=== PATIENT | female | born 1955 | race Caucasian/White ===

== ENCOUNTER 2023-04-04 15:37 | Emergency (ER) | payer MEDICARE, OTHER, SELFPAY ==
[2023-04-04] VITALS (14 sets, daily range): BP systolic 113–146; BP diastolic 58–72; PULSE 90–108; RESP 16–38; TEMP 36.8; O2SAT 94–98; BMI 26.6
--- NOTE | 2023-04-04 15:51 | DI.RAD.S_ITS ---
PROCEDURE: XR CHEST 1V INDICATIONS: chest pain TECHNIQUE: One view of the chest was acquired. COMPARISON: None. FINDINGS: Lungs and pleura: Lungs are clear. No pleural effusions or pneumothorax. Mediastinum: Mediastinal contours appear normal. Heart size is normal. Bones and chest wall: No suspicious bony lesions. Overlying soft tissues appear unremarkable. IMPRESSION: No acute cardiopulmonary abnormality. Dictated by: Selvin Hawthorne M.D. on 04/04/2023 at 17:30 Approved by: Selvin Hawthorne M.D. on 04/04/2023 at 17:31
[2023-04-04 16:39] LABS: Add Manual Diff / Slide Review NO; Basophils Absolute Auto 0 /uL (0-100); Basophils Percent Auto 0.3 % (0-2); Eosinophils Absolute Auto 100 /uL (0-450); Eosinophils Percent Auto 0.9 % (2-4); Hematocrit 39.5 % (36-46); Hemoglobin 13.4 g/dL (12.0-16.0); Lymphocytes Absolute Auto 1300 /uL (1100-4500); Lymphocytes Percent Auto 19.1 % (25-40); Mean Corpuscular Hemoglobin 30.7 PG (26-34); Mean Corpuscular Volume 90.5 fL (80-100); Monocytes Absolute Auto 1100 /uL (0-900); Monocytes Percent Auto 15.8 % (3-14); Neutrophils Absolute Auto 4300 /uL (1500-7000); Neutrophils Percent Auto 63.9 % (50-75); Platelet Count 188 X10^3/uL (150-400); Red Blood Cell Count 4.36 X10^6/uL (4.0-5.2); Red Cell Distribution Width 13.8 % (11.6-14.8); White Blood Cell Count 6.7 X10^3/uL (4.5-11.0)
[2023-04-04 16:40] LABS: INR 1.1 (0.9-1.3); Prothrombin Time 12.8 SECONDS (10.1-12.7)
[2023-04-04 16:42] LABS: PTT Partial Thromboplastin Tim 28 SECONDS (26-36)
[2023-04-04 16:45] LABS: Alanine Aminotransferase 29 IU/L (<35); Albumin 3.9 g/dL (3.5-5.0); Albumin Globulin Ratio 1.5 (1.0-2.8); Alkaline Phosphatase 88 U/L (38-126); Aspartate Aminotransferase 31 IU/L (14-36); Blood Urea Nitrogen 27 mg/dL (7-17); Calcium 9.4 mg/dL (8.4-10.2); Carbon Dioxide 23 mmol/L (22-32); Chloride 101 mmol/L (98-107); Creatine Kinase < 20 U/L (30-135); Estimated Glomerular Filt Rate > 60 mL/min (>60); Globulin 2.6 g/dL (1.7-4.1); Glucose 99 mg/dL (80-110); HEMOLYSIS < 15 (0-50); Lipase 207 U/L (23-300); Magnesium 1.8 mg/dL (1.6-2.3); Potassium 4.4 mmol/L (3.4-5.1); Sodium 135 mmol/L (137-145); Total Protein 6.5 g/dL (6.3-8.2)
[2023-04-04 16:56] LABS: Troponin I < 0.012 ng/mL (0.01-0.034)
[2023-04-04 18:14] LABS: TSH w/ Reflex to FT4 < 0.02 uIU/mL (0.47-4.68)
[2023-04-04 18:42] LABS: Free T4, Direct Thyroxine > 6.99 ng/dL (0.78-2.19)
--- NOTE | 2023-04-04 18:56 | PC.NURSE ---
This RNs first interaction with patient. She has been waiting in the lobby, brought to the tx room at 1850.
--- NOTE | 2023-04-04 20:42 | ED_ITS ---
HPI - Chest Pain General Chief Complaint: Chest Pain Stated Complaint: elevated heart rate Time Seen by Provider: 04/04/23 20:42 Source: patient Mode of arrival: Ambulatory Limitations: no limitations History of Present Illness HPI narrative: Patient is a 67-year-old female history of hypothyroid presenting today with heart palpitations and shortness of breath. She reports that she is visiting from [place] helping her cousin out for a month while she recovers from surgery. She reports that going up stairs she feels like her heart is racing and she is very short of breath she denies any chest pain. She has not passed out. No nausea vomiting or abdominal pain. She also reports stress with her elderly parents as well with their health issues. Related Data Home Medications Medication Instructions Recorded Confirmed thyroid (pork) 120 mg tablet ([employer] 120 mg PO DAILY 04/04/23 04/04/23 Thyroid) Allergies Allergy/AdvReac Type Severity Reaction Status Date / Time codeine Allergy Hypertensio Verified 04/04/23 15:49 n Review of Systems Review of Systems ROS Unobtainable: All systems reviewed & are unremarkable except as noted in HPI and below Patient History Social History Smoking Status: Never smoker Smoking Status: Never smoker alcohol intake frequency: a few times a month Substance Use Type: does not use Exam Initial Vital Signs Initial Vital Signs: Vital Signs Temperature 98.3 F 04/04/23 15:42 Pulse Rate 90 04/04/23 15:42 Respiratory Rate 20 04/04/23 15:42 Blood Pressure 146/66 H 04/04/23 15:42 Pulse Oximetry 97 04/04/23 15:42 Oxygen Delivery Method Room Air 04/04/23 15:42 GENERAL: Alert pleasant well-appearing 67-year-old female and in no acute distress. HEENT: Head atraumatic,EOMI, pupils reactive, face symmetric, moist] mucous membranes CARDIOVASCULAR: Mildly tachycardic no murmur regular RESPIRATORY: Breath sounds equal bilaterally, no wheezes rales or rhonchi. ABDOMEN: Soft, nontender. Normoactive bowel sounds all 4 quadrants. No guarding or rebound. EXTREMITIES: Normal range of motion, no clubbing or edema. Neurovascularly intact NEUROLOGICAL: Alert and oriented x4. SKIN: Warm, dry, no laceration, no petechiae, no rashes or lesions. Scores PERC Score Age greater than or equal to 50 years: Yes Heart rate greater than or equal to 100 bpm: Yes Room Air O2 Sat less than 95%: No Unilateral leg swelling: No Recent trauma or surgery: No Hemoptysis: No Prior PE or DVT: No Hormone Use: No Total PERC Score: 2 Course Orders Ordered: ED Orders 04/04/23 21:00 D Dimer Stat Discontinued Medications Aspirin (Aspirin 81 Mg Chew Tab) 324 mg PO NOW ONE Stop: 04/04/23 15:52 Last Admin: 04/04/23 18:59 Dose: Not Given Documented By: TRISH Vital Signs Vital signs: Vital Signs - 8 hr 04/04/23 20:00 04/04/23 20:00 04/04/23 20:15 Pulse Rate 98 H 103 H Respiratory Rate 16 20 Blood Pressure 140/72 Pulse Oximetry 97 97 Oxygen Delivery Method 04/04/23 20:15 04/04/23 20:30 04/04/23 20:30 Pulse Rate 103 H Respiratory Rate 20 Blood Pressure 130/68 146/70 H Pulse Oximetry 97 Oxygen Delivery Method 04/04/23 20:45 04/04/23 20:45 04/04/23 21:00 Pulse Rate 108 H Respiratory Rate 22 Blood Pressure 131/61 135/63 Pulse Oximetry 95 Oxygen Delivery Method 04/04/23 21:00 04/04/23 21:15 04/04/23 21:15 Pulse Rate 106 H 105 H Respiratory Rate 18 20 Blood Pressure 144/67 H Pulse Oximetry 94 95 Oxygen Delivery Method Room Air 04/04/23 21:30 04/04/23 21:30 Pulse Rate 99 H Respiratory Rate 22 Blood Pressure 131/59 L Pulse Oximetry 94 Oxygen Delivery Method Room Air MDM - Chest Pain Lab Data 04/04/23 16:23 04/04/23 16:23 Labs: Lab Results 04/04/23 04/04/23 04/04/23 Range/Units 16:23 16:23 16:23 WBC 6.7 (4.5-11.0) X10^3/uL RBC 4.36 (4.0-5.2) X10^6/uL Hgb 13.4 (12.0-16.0) g/dL Hct 39.5 (36-46) % MCV 90.5 (80-100) fL MCH 30.7 (26-34) PG MCHC 34.0 (30-36) % RDW 13.8 (11.6-14.8) % Plt Count 188 (150-400) X10^3/uL Neut % (Auto) 63.9 (50-75) % Lymph % (Auto) 19.1 L (25-40) % Bullitt % (Auto) 15.8 H (3-14) % Eos % (Auto) 0.9 L (2-4) % Baso % (Auto) 0.3 (0-2) % Neut # (Auto) 4300 (0506-1224) /uL Lymph # (Auto) 1300 (9877-3316) /uL Bullitt # (Auto) 1100 H (0-900) /uL Eos # (Auto) 100 (0-450) /uL Baso # (Auto) 0 (0-100) /uL PT 12.8 H (10.1-12.7) SECONDS INR 1.1 (0.9-1.3) APTT 28 (26-36) SECONDS D-Dimer (<500) ng/ml Sodium 135 L (137-145) mmol/L Potassium 4.4 (3.4-5.1) mmol/L Chloride 101 (98-107) mmol/L Carbon Dioxide 23 (22-32) mmol/L BUN 27 H (7-17) mg/dL Creatinine 0.73 (0.52-1.04) mg/dL Estimated GFR > 60 (>60) mL/min BUN/Creatinine Ratio 37.0 H (6-22) Glucose 99 (80-110) mg/dL Calcium 9.4 (8.4-10.2) mg/dL Magnesium 1.8 (1.6-2.3) mg/dL Total Bilirubin 1.0 (0.2-1.3) mg/dL AST 31 (14-36) IU/L ALT 29 (<35) IU/L Alkaline Phosphatase 88 (38-126) U/L Total Creatine Kinase < 20 L (30-135) U/L Troponin I < 0.012 (0.01-0.034) ng/mL Total Protein 6.5 (6.3-8.2) g/dL Albumin 3.9 (3.5-5.0) g/dL Globulin 2.6 (1.7-4.1) g/dL Albumin/Globulin Ratio 1.5 (1.0-2.8) Lipase 207 (23-300) U/L TSH (0.47-4.68) uIU/mL Free T4 (0.78-2.19) ng/dL 04/04/23 04/04/23 Range/Units 16:23 21:00 WBC (4.5-11.0) X10^3/uL RBC (4.0-5.2) X10^6/uL Hgb (12.0-16.0) g/dL Hct (36-46) % MCV (80-100) fL MCH (26-34) PG MCHC (30-36) % RDW (11.6-14.8) % Plt Count (150-400) X10^3/uL Neut % (Auto) (50-75) % Lymph % (Auto) (25-40) % [place] % (Auto) (3-14) % Eos % (Auto) (2-4) % Baso % (Auto) (0-2) % Neut # (Auto) (0207-1673) /uL Lymph # (Auto) (5211-6552) /uL Bullitt # (Auto) (0-900) /uL Eos # (Auto) (0-450) /uL Baso # (Auto) (0-100) /uL PT (10.1-12.7) SECONDS INR (0.9-1.3) APTT (26-36) SECONDS D-Dimer 649 H (<500) ng/ml Sodium (137-145) mmol/L Potassium (3.4-5.1) mmol/L Chloride (98-107) mmol/L Carbon Dioxide (22-32) mmol/L BUN (7-17) mg/dL Creatinine (0.52-1.04) mg/dL Estimated GFR (>60) mL/min BUN/Creatinine Ratio (6-22) Glucose (80-110) mg/dL Calcium (8.4-10.2) mg/dL Magnesium (1.6-2.3) mg/dL Total Bilirubin (0.2-1.3) mg/dL AST (14-36) IU/L ALT (<35) IU/L Alkaline Phosphatase (38-126) U/L Total Creatine Kinase (30-135) U/L Troponin I (0.01-0.034) ng/mL Total Protein (6.3-8.2) g/dL Albumin (3.5-5.0) g/dL Globulin (1.7-4.1) g/dL Albumin/Globulin Ratio (1.0-2.8) Lipase (23-300) U/L TSH < 0.02 L (0.47-4.68) uIU/mL Free T4 > 6.99 H (0.78-2.19) ng/dL Imaging Data Chest x-ray: Radiologist's Impression: PROCEDURE:? XR CHEST 1V ? INDICATIONS:? chest pain ? TECHNIQUE:? One view of the chest was acquired.? ? COMPARISON:? None. ? FINDINGS:? ? Lungs and pleura:? Lungs are clear.? No pleural effusions or pneumothorax.? ? Mediastinum:? Mediastinal contours appear normal.? Heart size is normal.? ? Bones and chest wall:? No suspicious bony lesions.? Overlying soft tissues appear unremarkable.? ? IMPRESSION:? No acute cardiopulmonary abnormality. ? ? Dictated by: Selvin Hawthorne M.D. on 04/04/2023 at 17:30? ECG Data Interpretation: Normal sinus rhythm 98 NC interval 160 QRS [address] changes no T-wave inversions no priors to compare MDM Narrative Medical decision making narrative: Patient 67-year-old female presenting today palpitations shortness of breath. She is found to be hyperthyroid. She reports that she is taking a natural thyroid he is supposed to be taking the thyroid and P however the pharmacy gave her the armor. I suspect that this is causing her palpitations. She is going back to [place] next month. Other blood work is reviewed and reassuring. Pulmonary embolism was considered with her recent travel and tachycardia D-dimer is ordered it is 649 which is age corrected. She is a positive PERC score with a negative years. I think likely cause of her tachycardia is her thyroid more likely than a pulmonary embolism. No evidence of coronary artery disease. Mild thyroid storm with low-grade tachycardia. We discussed stopping her thyroid medication until she returns back to [place] in a few weeks YEARS Algorithm for Pulmonary Embolism (PE) from [employer] on 04/05/2023 All calculations should be rechecked by clinician prior to use RESULT SUMMARY: PE excluded YEARS algorithm rules out PE (0.43% with symptomatic VTE during 3-month follow- up) INPUTS: patient ?> 0 = No Clinical signs of DVT ?> 0 = No Hemoptysis ?> 0 = No PE most likely diagnosis ?> 0 = No D-dimer >=,000 ng/mL ?> 0 = No Discharge Plan Departure Patient Disposition: Home Clinical Impression: Hyperthyroidism Instructions: Hyperthyroidism, DI for Palpitations Activity Restrictions/Additional Instructions: *You have been diagnosed with palpitations *What to do: I suspect her overactive thyroid for medications causing her palpitations. I would hold her medication now have your blood work rechecked and consider starting levothyroxine set up the natural thyroid medicine *Continue to take medications as directed *Follow up with your primary care provider in 2-3 days or call [phone] *Return to ER if you should have increased palpitations chest pain or any new, worsening or concerning symptoms Prescriptions: No Action thyroid (pork) [[employer] Thyroid] 120 mg tablet 120 mg PO DAILY Stand Alone Forms: Patient Portal/API
[2023-04-04 21:26] LABS: D Dimer 649 ng/ml (<500)
== END 2023-04-04 21:55 | disposition home or self-care (01) ==
PROVIDERS: Emergency Medicine; Emergency Provider Emergency Medicine
DX: E05.90 Thyrotoxicosis, unspecified without thyrotoxic crisis or storm (principal); R00.2 Palpitations; R07.9 Chest pain, unspecified
CPT/HCPCS: 36415; 71045; 80053; 82550; 83690; 83735; 84439; 84443; 84484; 85025; 85379; 85610; 85730; 93005; 93010; 99284